=== PATIENT | male | born 1940 | race Caucasian/White ===

== ENCOUNTER 2021-02-08 22:14 | Inpatient (IN) ==
[2021-02-08] MEDS ORDERED: Aspirin 81 MG TAB.CHEW PO ONE (22:40)
[2021-02-09 01:12] LABS: Basophils # 0.1 K/mcL (0.0-0.2); Basophils % 0.7 %; Eosinophils # 0.1 K/mcL (0.0-0.6); Hematocrit 38.4 % (37.5-50.1); Hemoglobin 13.1 g/dL (12.9-16.9); Immature Granulocytes % 0.3 % (0-4); Lymphocytes # 1.7 K/mcL (0.6-4.6); Lymphocytes % 18.1 %; Mean Corpuscular HGB Conc 34.1 g/dL (31.6-35.5); Mean Corpuscular Hemoglobin 31.3 pg (28.0-33.3); Mean Corpuscular Volume 91.6 fL (83.0-100.0); Mean Platelet Volume 11.7 fL (9.4-12.4); Monocytes # 0.6 K/mcL (0.0-1.3); Monocytes % 6.8 %; Neutrophils # 6.7 K/mcL (1.6-8.9); Platelet Count 261 K/mcL (140-400); Red Blood Count 4.19 M/mcL (4.19-5.50); Red Cell Distribution Width 12.8 % (11.5-14.5); Segmented Neutrophils % 73.1 %; White Blood Count 9.2 K/mcL (4.3-11.1)
[2021-02-09 01:33] LABS: Activated Partial Thrombo Time 31.1 Seconds (26.0-36.0); INR 0.9; Prothrombin Time 10.6 Seconds (9.4-12.1)
[2021-02-09 01:40] LABS: Alanine Aminotransferase 19 Units/L (7-52); Albumin 4.2 g/dL (3.5-5.7); Albumin/Globulin Ratio 1.6 (1.1-2.2); Alkaline Phosphatase 96 Units/L (34-104); Aspartate Amino Transferase 27 Units/L (13-39); BUN/Creatinine Ratio 21 (6-26); Bilirubin,Indirect 0.4 mg/dL (0.0-1.0); Bilirubin,Total 0.4 mg/dL (0.3-1.0); Blood Urea Nitrogen 24 mg/dL (8-23); Calcium 9.4 mg/dL (8.6-10.3); Carbon Dioxide 23 mEq/L (23-29); Chloride 106 mEq/L (98-107); Globulin 2.7 g/dL (2.4-3.5); Glucose 183 mg/dL (70-105); Lipase 27 Units/L (11-82); Magnesium 1.7 mg/dL (1.6-2.6); Osmolality,Calculated 299 (280-300); Potassium 3.8 mEq/L (3.5-5.1); Sodium 140 mEq/L (136-145); Total Protein 6.9 g/dL (6.4-8.9); eGFR For African Americans > 60 (> 60); eGFR For Non-African Americans > 60 (> 60)
[2021-02-09] MEDS ORDERED: Nitroglycerin 0.4 MG TAB.SUBL SL PRN (03:11)
[2021-02-09] MEDS ORDERED: Dextrose Gel 15 GM/37.5 ML TUBE PO PRN ×2 (04:35)
[2021-02-09] MEDS ORDERED: *HR* Heparin 5,000 UNIT/ML VIAL IVP ONE (04:35)
[2021-02-09] MEDS ORDERED: *HR* Dextrose 50 % in Water (Vial) 50 ML VIAL IVP PRN (04:35)
[2021-02-09] MEDS ORDERED: *HR* Heparin 5,000 UNIT/ML VIAL IVP PRN ×2 (04:35)
[2021-02-09] MEDS ORDERED: D5% in Water 1,000 ML IVC PRN (04:35)
[2021-02-09] MEDS ORDERED: Naloxone 0.4 MG/ML INJ IVP PRN (04:37)
[2021-02-09] MEDS ORDERED: Ondansetron 4 MG/2 ML VIAL IVP PRN (04:37)
[2021-02-09] MEDS ORDERED: Heparin 25,000UNIT/250ML 1/2NS 25,000 UNIT/250 ML IV.SOLN IVC SCH (04:45)
[2021-02-09] MEDS ORDERED: Perflutren Lipid Microsphere 1.3 ML in 0.9 % Sodium Chloride 8.7 ML IVP PRN (04:50)
[2021-02-09 05:28] LABS: Estimated Average Glucose 160 mg/dl; Hemoglobin A1C 7.2 %
[2021-02-09] MEDS: 0.9 % Sodium Chloride 1,000 ML IVC SCH ×3 (06:44→21:59)
[2021-02-09] MEDS: Insulin LISPRO 300 UNITS/3 ML VIAL SUBQ SCH ×3 (06:45→18:07)
[2021-02-09] MEDS: Aspirin 81 MG TAB.CHEW PO SCH (08:30)
[2021-02-09] MEDS ORDERED: ISOVUE-370 200 ML INFUS..BTL ONE ×2 (12:10→13:44)
[2021-02-09] MEDS ORDERED: *HR* Heparin 10,000 UNIT/10 ML VIAL ONE ×2 (12:10→13:08)
[2021-02-09] MEDS ORDERED: Nitroglycerin 1,000 MCG/5 ML VIAL IV ONE (12:10)
[2021-02-09] MEDS ORDERED: Heparin 1,000 UNITS/500 mL 500 ML ONE ×2 (12:10→13:54)
[2021-02-09] MEDS ORDERED: 0.9 % Sodium Chloride 1,000 ML ONE ×3 (12:10→14:08)
[2021-02-09] MEDS ORDERED: *HR* Midazolam HCl 2 MG/2 ML VIAL ONE (12:23)
[2021-02-09] MEDS ORDERED: *HR* FentaNYL (PF) 100 MCG/2 ML VIAL ONE (12:23)
[2021-02-09] MEDS ORDERED: *HR* Ticagrelor 90 MG TABLET ONE (13:06)
[2021-02-09] MEDS ORDERED: Tirofiban 12.5 MG/250ML 12.5 MG/250 ML BAG ONE (13:24)
[2021-02-09] MEDS ORDERED: Tirofiban 12.5 MG/250ML 12.5 MG/250 ML BAG IVC SCH (15:30)
[2021-02-09] MEDS: *HR* Ticagrelor 90 MG TABLET PO SCH (19:59)
[2021-02-10] MEDS: 0.9 % Sodium Chloride 1,000 ML IVC SCH (00:04)
[2021-02-10] MEDS: Insulin LISPRO 300 UNITS/3 ML VIAL SUBQ SCH ×2 (00:15→05:34)
[2021-02-10 02:03] LABS: Basophils % 0.2 %; Eosinophils % 0.2 %; Hematocrit 31.7 % (37.5-50.1); Immature Granulocytes % 0.3 % (0-4); Lymphocytes # 1.1 K/mcL (0.6-4.6); Lymphocytes % 12.1 %; Mean Corpuscular HGB Conc 33.1 g/dL (31.6-35.5); Mean Corpuscular Hemoglobin 30.8 pg (28.0-33.3); Mean Platelet Volume 11.4 fL (9.4-12.4); Monocytes % 10.5 %; Neutrophils # 6.9 K/mcL (1.6-8.9); Platelet Count 195 K/mcL (140-400); Red Blood Count 3.41 M/mcL (4.19-5.50); Red Cell Distribution Width 13.2 % (11.5-14.5); Segmented Neutrophils % 76.7 %
[2021-02-10 02:04] LABS: Alanine Aminotransferase 30 Units/L (7-52); Albumin 3.4 g/dL (3.5-5.7); Albumin/Globulin Ratio 1.8 (1.1-2.2); Alkaline Phosphatase 71 Units/L (34-104); Aspartate Amino Transferase 157 Units/L (13-39); BUN/Creatinine Ratio 21 (6-26); Bilirubin,Total 0.6 mg/dL (0.3-1.0); Blood Urea Nitrogen 21 mg/dL (8-23); Calcium 8.6 mg/dL (8.6-10.3); Carbon Dioxide 23 mEq/L (23-29); Chloride 111 mEq/L (98-107); Chol/HDL Ratio 3.6 (0-4.9); Cholesterol 123 mg/dL (< 200); Globulin 1.9 g/dL (2.4-3.5); Glucose 156 mg/dL (70-105); HDL Cholesterol 34 mg/dL (40-59); LDL Cholesterol,Calculated 60 mg/dL (< 100); Osmolality,Calculated 298 (280-300); Potassium 3.4 mEq/L (3.5-5.1); Sodium 141 mEq/L (136-145); Total Protein 5.3 g/dL (6.4-8.9); Triglycerides 144 mg/dL (< 150); eGFR For African Americans > 60 (> 60); eGFR For Non-African Americans > 60 (> 60)
[2021-02-10 02:08] LABS: Hemoglobin 10.5 g/dL (12.9-16.9)
[2021-02-10 02:43] LABS: Estimated Average Glucose 163 mg/dl; Hemoglobin A1C 7.3 %
[2021-02-10] MEDS: *HR* Ticagrelor 90 MG TABLET PO SCH (09:03)
[2021-02-10] MEDS: Aspirin 81 MG TAB.CHEW PO SCH (09:03)
[2021-02-10 10:02] LABS: Hematocrit 35.4 % (37.5-50.1)
[2021-02-10 10:08] LABS: Hemoglobin 12.3 g/dL (12.9-16.9)
[2021-02-10 10:39] VITALS: BP 121/73; PULSE 67; TEMP 97.8; O2SAT 94
== END 2021-02-10 11:38 | disposition home or self-care (01) | DRG 246 ==
LOC: 3BNU 22:14 → EMEROOARM 22:14 → SUATTDRO 02-09 03:19 → 3BNU 02-09 04:26
PROVIDERS: ADMIT Internal Medicine; ATTEND Internal Medicine